=== PATIENT | female | born 1965 | race Two or more races ===

== ENCOUNTER 2016-04-18 14:30 | Emergency (ER) | payer SELFPAY ==
--- NOTE | ~2016-04-18 | ER ---
PATIENT'S NAME: TACHO FAY [facility] AGE: 50 Y [address] ROOM: [place] [address] LOCATION: ED ADMIT DATE: 04/18/2016 ER/Outpatient Report DISCHARGE DATE: 04/18/2016 FAMILY PHYSICIAN: PHYSICIAN, NO ATTENDING PHYSICIAN: Juan Manuel Louise CHIEF COMPLAINT: Abdominal pain. HISTORY OF PRESENT ILLNESS: The patient states that she has had pain since this morning after she woke up. The pain started before she ate, but was not present when she woke up. She has a history of kidney stones. She has taken Tylenol for this issue. She is able to complete work before she came in. The pain has been constant and aching in the right upper quadrant, in the back, and right side. It radiates anteriorly, but not down towards the groin. It is aching in nature. She was able to eat and keep it down with no difficulty and the meal did not seem to make it any worse. PAST MEDICAL HISTORY: Documented on the record and reviewed by me. SOCIAL HISTORY: Documented on the record and reviewed by me. MEDICATIONS: Documented on the record and reviewed by me. ALLERGIES: DOCUMENTED ON THE RECORD AND REVIEWED BY ME. REVIEW OF SYSTEMS: All systems reviewed and negative except as noted in the HPI. PHYSICAL EXAMINATION: VITAL SIGNS: Blood pressure 124/84, pulse 70, respiratory rate is 16, temperature 98.5, and SpO2 is 99% on room air. Pain is rated at 6/10. GENERAL: An age appropriate female, in obvious pain, but no distress, sitting on the exam table holding her right side. NEUROLOGIC: Awake and alert. GCS 15. No focal deficits or asymmetry. Walks without gait abnormality. HEENT: Normocephalic and atraumatic. Eyes are PERRL. Oropharynx is clear. NECK: Supple. Trachea is midline. CHEST: Heart regular rate and rhythm with no murmurs. Lungs are clear to auscultation bilaterally with no rhonchi, wheezes, or rales. PATIENT'S NAME: TACHO FAY [facility] AGE: 50 Y [address] ROOM: [place] [address] LOCATION: ED ADMIT DATE: 04/18/2016 ER/Outpatient Report DISCHARGE DATE: 04/18/2016 FAMILY PHYSICIAN: PHYSICIAN, NO ATTENDING PHYSICIAN: Juan Manuel Louise ABDOMEN: Soft with tenderness in the right upper quadrant and right flank area particularly along the costal margin, equivocal Agarwal's sign. The liver is otherwise normal to palpation. No other masses. No rebound or guarding. Negative obturator and psoas signs. BACK: Nontender to palpation throughout. No CVA tenderness. There is some bruising on the right paraspinal area near the scapula. Minimally tender to palpation at that location, but no spinal tenderness. No CVA tenderness. EXTREMITIES: Warm and well perfused with no erythema or edema. SKIN: Warm, dry, and intact. LABORATORY DATA AND X-RAYS: Right upper quadrant ultrasound reveals 2.3 cm mobile stone that was stuck in the neck of the gallbladder, but fell to the fundus during the exam. Gallbladder wall is 4 mm, cystic duct is 5 mm, no pericholecystic fluid appreciated, otherwise unremarkable exam per report. CT of the abdomen does not show any other new findings. Procalcitonin below threshold. Sodium 148, potassium 3.7, chloride is 111, CO2 is 26, BUN is 13, and creatinine 0.8. LFTs are normal. Amylase and lipase 33 and 123. GGT is 16. CRP is below threshold. WBC is 8.4, hemoglobin 13.4, and platelets of 279. INR is 1.0. Lactate is 1.3. Urinalysis; no leukocytes, no nitrites, 10 blood. Micro; no wbc's, 2 to 5 rbc's, 0 to 2 epithelials, few bacteria, not consistent with infection, possible stone. Urine HCG was negative. IMPRESSION: Cholelithiasis without cholecystitis. EMERGENCY DEPARTMENT COURSE: The patient was evaluated as noted above. No obvious cholecystitis. The stone is removed from the cystic duct. Her pain has resolved. She was given morphine upon presentation, which improved her pain, but it resolved during the ultrasound. CT scan was obtained to exclude any other concerning signs or symptoms. The patient is otherwise healthy and is feeling much better. I spoke with Dr. Chen on the phone. Clinic followup as appropriate later this week. Monitor for signs and symptoms and return. Return immediately if worsening. Otherwise, see Dr. Chen. Recommend low-fat diet in the interim. All questions asked and the patient was discharged. MD RUBEN BECERRIL/mario PATIENT'S NAME: ZOFIA BRAN [facility] AGE: 50 Y [address] ROOM: [place] [address] LOCATION: [facility] ADMIT DATE: 04/18/2016 ER/Outpatient Report DISCHARGE DATE: 04/18/2016 FAMILY PHYSICIAN: JANICE DE LA CRUZ ATTENDING PHYSICIAN: Juan Manuel Louise /[id number] d: 04/19/16 0034 t: 05/13/16 1503, OUTPATIENT REPORT
[2016-04-18 15:12] LABS: BILIRUBIN URINE NEGATIVE (NEGATIVE); BLOOD URINE 10 /UL (NEGATIVE); COLOR URINE YELLOW (YELLOW); GLUCOSE URINE NEGATIVE (NEGATIVE); KETONE URINE NEGATIVE (NEGATIVE); LEUKOCYTES URINE NEGATIVE /UL (NEGATIVE); NITRITE URINE NEGATIVE (NEGATIVE); PROTEIN URINE NEGATIVE (NEGATIVE); SPEC GRAVITY URINE 1.015 (1.003-1.035); TURBIDITY URINE CLEAR (CLEAR); UROBILINOGEN URINE NORMAL (NORMAL)
[2016-04-18 15:17] LABS: BASOPHIL % 0.4 %; EOSINOPHIL # 0.2 K/uL (0.0-0.5); EOSINOPHIL % 1.8 %; HEMATOCRIT 40.3 % (33.0-46.0); HEMOGLOBIN 13.4 g/dL (10.0-15.0); IMMATURE GRANULOCYTE % 0.2 %; LYMPHOCYTE # 2.4 K/uL (0.8-4.0); LYMPHOCYTE % 28.9 %; MCH 29.5 pg (27.0-34.0); MCHC 33.3 gm/dL (32.0-36.5); MCV 88.6 fl (83.0-98.0); MONOCYTE # 0.6 K/uL (0.0-1.0); MONOCYTE % 6.7 %; NEUTROPHIL # (ANC) 5.2 K/uL (1.8-7.8); NRBC % 0 /100WBC (0-0.00); PLATELET COUNT 279 K/uL (150-450); RBC 4.55 M/uL (3.50-5.50); RDW-CV 13.7 % (11.9-14.6); WBC 8.4 K/uL (4.0-11.0)
[2016-04-18 15:25] LABS: BACTERIA URINE FEW (NEGATIVE); EPITHELIAL URINE 0-2 #/HPF (NEGATIVE); WBC URINE NEGATIVE #/HPF (NEGATIVE)
[2016-04-18 15:26] LABS: PROTIME 10.4 SECONDS (9.6-11.1); PTT 26 SECONDS (25-32)
[2016-04-18 15:26] LABS: MUCUS URINE 1+ (NEGATIVE)
[2016-04-18 15:36] LABS: ALBUMIN 3.9 gm/dL (3.5-5.0); ALK PHOS 117 IU/L (33-138); ALT 26 IU/L (12-78); AST 26 IU/L (10-40); BLOOD UREA NITROGEN 13 mg/dL (6-24); CALCIUM 8.9 mg/dL (8.5-10.5); CHLORIDE 111 mMol/L (96-110); CO2 26 mMol/L (22-32); CREATININE 0.8 mg/dL (0.5-1.1); ESTIMATED GFR (MDRD EQUATION) > 60; POTASSIUM 3.7 mMol/L (3.7-5.1); TOTAL BILIRUBIN 0.3 mg/dL (0.0-1.5); TOTAL PROTEIN 7.5 g/dL (6.0-8.4)
[2016-04-18 15:39] LABS: ANION GAP 14.7 (10.0-19.0); SODIUM 148 mMol/L (135-145)
[2016-05-13] MEDS ORDERED: NORCO 5-325 TA1 EACH PO (09:28)
== END 2016-04-18 17:03 | disposition disaster alternative care site (69) ==
LOC: GMED 14:30
PROVIDERS: Emergency Medicine
DX: K80.20 Calculus of gallbladder without cholecystitis without obstruction (principal)
CPT/HCPCS: J2270; J2405

== ENCOUNTER → 2016-05-13 | Day surgery (SDC) | payer OTHER ==
[~2016-05-13] VITALS: Ht 165.1 cm; Wt 116.7 kg
[~2016-05-13] MED LIST: NORCO 5-325 TA1 EACH PO
--- NOTE | ~2016-05-13 | OR ---
PATIENT'S NAME: TACHO [facility] AGE: 50 Y [address] ROOM: [place] [address] LOCATION: [facility] [place] ADMIT DATE: 05/13/2016 OR/Procedure Report DISCHARGE DATE: FAMILY PHYSICIAN: PHYSICIAN, NO ATTENDING PHYSICIAN: Diony Chen SURGEON: Diony Chen MD [facility] [employer]: Willem Liriano PA-C DATE OF PROCEDURE: 05/13/2016 PREOPERATIVE DIAGNOSIS: Cholelithiasis with biliary colic. POSTOPERATIVE DIAGNOSIS: Cholelithiasis with chronic cholecystitis. PROCEDURE PERFORMED: Laparoscopic cholecystectomy. ANESTHESIA: General endotracheal. ESTIMATED BLOOD LOSS: 10 mL. SPECIMENS: Gallbladder and stones. REASON FOR PROCEDURE: The patient is a 50-year-old female who recently went into the emergency room with a severe attack of right upper quadrant pain. She was found to have cholelithiasis, but no obvious cholecystitis, and no evidence of common duct stone. We discussed the risks and benefits of surgery versus ongoing observation, and she elected to proceed with cholecystectomy. FINDINGS: The patient had a normal-sized cystic duct. There was some chronic wall thickening. Multiple stones were identified. The procedure was otherwise uneventful. PROCEDURE IN DETAIL: The patient was taken to the operating suite and placed in the supine position. After general endotracheal anesthesia was obtained, the abdomen was prepped with ChloraPrep and sterilely draped. Marcaine was infiltrated into the incision sites. A small transverse infraumbilical incision was made. The fascia was grasped and elevated, and a Veress needle was used to obtain a pneumoperitoneum. An 11 mm trocar was then passed across the abdominal wall. Next, three 5 mm subcostal trocars were all placed under direct visualization. The fundus of the gallbladder was grasped and elevated. A second grasper was placed on the infundibulum. We carefully dissected through the neck area of the gallbladder. The cystic duct and cystic artery were individually skeletonized up to the gallbladder wall. These were stapled proximally and distally and then divided with scissors. The gallbladder was then mobilized free of the liver bed using cautery. Once fully mobilized, the gallbladder was removed from the umbilicus. The right upper quadrant was PATIENT'S NAME: [facility]O [facility] AGE: 50 Y [address] ROOM: [place] [address] LOCATION: [facility] [place] ADMIT DATE: 05/13/2016 OR/Procedure Report DISCHARGE DATE: FAMILY PHYSICIAN: PHYSICIAN, NO ATTENDING PHYSICIAN: Diony Chen. There were no signs of any ongoing bleeding or bile leak. We did have to stretch the fascia at the umbilicus somewhat to allow removal of the gallbladder and stones. The fascia at the umbilicus was closed with a figure- of-eight Vicryl suture. The skin incisions were all closed with subcuticular Monocryl. Benzoin, Steri-Strips, and gauze dressings were applied. POSTPROCEDURE PLAN: The patient will be sent to Recovery and discharged home when awake and alert. We will see her here in the office in 1 to 2 weeks for recheck. She is given a prescription for Mallory for pain control. MD SHAMEKA BECK/shalal /[id number] d: 05/13/161913 t: 05/16/16 1004, OPERATIVE SUMMARY
== END | disposition disaster alternative care site (69) ==
LOC: GPOC 05-11 16:00 → GSDC 07:11
PROC: 0FT44ZZ Resection of Gallbladder, Percutaneous Endoscopic Approach (ICD-10-PCS; principal; 2016-05-13)
DX: K80.10 Calculus of gallbladder with chronic cholecystitis without obstruction (principal)
CPT/HCPCS: J0694; J3010; J7030